=== PATIENT | male | born 1990 | race Caucasian/White ===

== ENCOUNTER → 2016-07-26 | Outpatient (CLI) | payer OTHER ==
[~2016-07-26] MED LIST: DEXL60CA PO
== END | disposition home or self-care (01) ==
LOC: LAB 16:54
PROVIDERS: ATTEND Internal Medicine
DX: F32.9 Major depressive disorder, single episode, unspecified (principal)
CPT/HCPCS: 36415; 84403; 84443

== ENCOUNTER 2016-10-09 13:33 | Emergency (ER) | payer OTHER ==
[~2016-10-09] VITALS: Ht 170.2 cm; Wt 77.4 kg
[2016-10-09 13:35] VITALS: BP 137/69
[2016-10-09 14:44] LABS: BLOOD UREA NITROGEN 19 mg/dL (7-18)
[2016-10-09 14:47] LABS: ASPARTATE AMINO TRANSFERASE 22 U/L (15-37)
[2016-10-09 15:01] LABS: HIV 1&2 ANTIBODY SCREEN Nonreactive (Nonreactive); HIV-1 p24 ANTIGEN Nonreactive (Nonreactive)
[2016-10-09 15:19] LABS: HEP B SURF. AB > 1000.0 mIU/mL (0.0-10.0)
[2016-10-09 15:58] LABS: HEPATITIS C VIRUS ANTIBODY Nonreactive (Nonreactive)
== END 2016-10-09 15:00 | disposition home or self-care (01) ==
LOC: ED 14:51
DX: Z77.21 Contact with and (suspected) exposure to potentially hazardous body fluids (principal); Z88.1 Allergy status to other antibiotic agents; X58.XXXA Exposure to other specified factors, initial encounter; Y93.89 Activity, other specified; Y92.89 Other specified places as the place of occurrence of the external cause; Y99.8 Other external cause status
CPT/HCPCS: 36415; 80053; 86703; 86706; 86803; 87899; 99284; G0435

== ENCOUNTER → 2017-05-06 | Outpatient (CLI) | payer OTHER ==
[~2017-05-06] MED LIST changes: -DEXL60CA PO; +DEXL60CA2 PO
== END | disposition home or self-care (01) ==
LOC: LAB 13:47
PROVIDERS: ATTEND Internal Medicine Hematology & Oncology
DX: Z20.5 Contact with and (suspected) exposure to viral hepatitis (principal)
CPT/HCPCS: 36415; 84460; 86803; 87522